=== PATIENT | female | born 1995 | race Caucasian/White ===

== ENCOUNTER 2019-01-04 18:19 | Emergency (ER) | payer OTHER ==
[~2019-01-04] VITALS: Ht 154.9 cm; Wt 59.1 kg
[2019-01-04] MEDS ORDERED: DEXAMETHASONE SOD PHOS 4 MG/ML 5 ML VIAL IM ONE (18:45)
[2019-01-04] MEDS ORDERED: DiphenhydrAMINE HCL 25 MG CAPSULE PO ONE (20:00)
[2019-01-04 20:21] VITALS: BP 118/72
== END 2019-01-04 20:23 | disposition home or self-care (01) ==
LOC: EMS 18:19
DX: L30.9 Dermatitis, unspecified (principal)
CPT/HCPCS: 87430; 96372; 99283; J1100